=== PATIENT | male | born 1990 | race Two or more races ===

== ENCOUNTER 2019-02-28 05:11 | Inpatient (IN) | payer MEDICAID ==
[~2019-02-28] VITALS: Ht 170.2 cm; Wt 110.0 kg
[~2019-02-28 05:11] MED LIST: IBUP800T24 PO
[2019-02-28 06:13] LABS: Basophils # (auto) 0 uL; Basophils % (auto) 0.5 % (0.0-2.0); Eosinophils # (auto) 0.7 uL; Eosinophils % (auto) 7.7 % (0.0-7.0); Hematocrit 47.4 % (41.0-53.0); Hemoglobin 16.2 g/dL (13.5-17.5); Lymphocytes # (auto) 2.1 uL; Lymphocytes % (auto) 23.1 % (10.0-50.0); Mean Corpuscular Hemoglobin 30.1 pg (28.0-32.0); Mean Corpuscular Hgb Conc. 34.2 g/dL (32.0-36.0); Monocytes # (auto) 0.5 uL; Monocytes % (auto) 5.8 % (0.0-12.0); Neutrophils # (auto) 5.8 uL; Neutrophils % (auto) 62.9 % (37.0-80.0); Platelet Count (auto) 336 10^3/uL (140-450); Red Blood Cells 5.38 10^6/uL (4.5-5.90); Red Cell Distribution Width 13.5 % (11.8-14.3); White Blood Cell 9.3 10^3/uL (4.4-10.8)
[2019-02-28 06:31] LABS: Urine Bacteria FEW /hpf (None Seen); Urine Blood Negative /uL (Negative); Urine Mucus FEW (None Seen); Urine Specific Gravity 1.024 (1.001-1.035); Urine WBC 1 /hpf (0 - 3)
[2019-02-28 06:46] LABS: INR 0.93 (0.9-1.15); Partial Thromboplastin Time 26.9 sec (23.64-32.05)
[2019-02-28 07:04] LABS: Albumin 3.7 g/dL (3.4-5.0); BUN/Creatinine Ratio 14.4; Calcium 8.7 mg/dL (8.5-10.1); Potassium 3.8 mmol/L (3.5-5.1)
[2019-02-28 07:07] LABS: Bilirubin, Total 0.4 mg/dL (0.2-1.0); Total Protein 7.7 g/dL (6.4-8.2)
[2019-02-28] MEDS ORDERED: SODIUM CHLORIDE 0.9% 1,000 ML IV ONE ×2 (07:28)
[2019-02-28] MEDS ORDERED: ONDANSETRON HCL 4 MG/2 ML VIAL IV ONE (07:30)
[2019-02-28] MEDS ORDERED: cefTRIAXone 1GM/50ML D5W 50 ML IV ONE (07:30)
[2019-02-28] MEDS ORDERED: MORPHINE SULFATE 4 MG/ML SYR/VIAL IV ONE (07:30)
[2019-02-28] MEDS ORDERED: metroNIDAZOLE 500MG/100ML 100 ML IV ONE (07:30)
[2019-02-28] MEDS ORDERED: SODIUM CHLORIDE 0.9% 1,000 ML IV SCH (08:33)
[2019-02-28] MEDS ORDERED: FAMOTIDINE (10MG/ML) 2ML VL IV SCH (08:45)
[2019-02-28] MEDS ORDERED: MORPHINE SULF INJ 2 MG/ML SYRINGE 1ML IV PRN (08:45)
[2019-02-28] MEDS ORDERED: PROMETHAZINE HCL 25 MG/ML 1ML IV PRN (08:45)
[2019-02-28] MEDS ORDERED: TEMAZEPAM 15 MG CAP PO PRN (08:45)
[2019-02-28] MEDS ORDERED: DEXTROSE (50%) 50ML SYRG IV PRN (08:45)
[2019-02-28] MEDS ORDERED: ACETAMINOPHEN 500 MG TAB PO PRN (08:45)
[2019-02-28] MEDS ORDERED: NITROGLYCERIN 0.4 MG SL TAB SL PRN (08:45)
[2019-02-28] MEDS ORDERED: traMADol HCL 50 MG TAB PO PRN (08:45)
[2019-02-28] MEDS ORDERED: MORPHINE SULFATE 4 MG/ML SYR/VIAL IV PRN (08:45)
[2019-02-28] MEDS: cefTRIAXone 1GM/50ML D5W 50 ML IV SCH (09:00)
[2019-02-28] MEDS: ENOXAPARIN SOD 40 MG/0.4 ML SYRINGE SC SCH (11:25)
[2019-02-28] MEDS: InsuLIN REG 1unit/0.01ml Soln (100units/ml) SC SCH ×3 (11:26→21:54)
[2019-02-28] MEDS: ACCU-CHEK COMFORT CURVE STRIP VI SCH ×3 (11:26→21:54)
[2019-02-28] MEDS ORDERED: METF-370 PO ×2 (13:03)
[2019-02-28] MEDS: SODIUM CHLORIDE 0.9% 1,000 ML IV SCH (14:10)
[2019-02-28] MEDS: metroNIDAZOLE 500MG/100ML 100 ML IV SCH ×2 (14:40→21:54)
[2019-02-28] MEDS: PANTOPRAZOLE 40 MG TAB PO SCH ×2 (14:40→21:54)
[2019-02-28 17:34] VITALS: BP 135/80
[2019-02-28 22:25] VITALS: BP 119/65
[2019-03-01] MEDS: SODIUM CHLORIDE 0.9% 1,000 ML IV SCH ×2 (01:36→10:10)
[2019-03-01 05:25] VITALS: BP 116/68
[2019-03-01] MEDS: metroNIDAZOLE 500MG/100ML 100 ML IV SCH ×2 (05:58→14:06)
[2019-03-01] MEDS: InsuLIN REG 1unit/0.01ml Soln (100units/ml) SC SCH ×2 (06:36→11:30)
[2019-03-01] MEDS: ACCU-CHEK COMFORT CURVE STRIP VI SCH ×2 (06:36→11:30)
[2019-03-01 07:25] LABS: Amylase 47 U/L (25-115); Lipase 168 U/L (73-393)
--- NOTE | 2019-03-01 08:00 | NUR ---
RECEIVED PATIENT ALERT AND ORIENTED X4, NOT IN DISTRESS, CLEAR SOUNDS IN BILATERAL LUNG LOBES, COUGHING AND DEEP BREATHING ENCOURAGED, DEMONSTRATED WELL, RR=18, SR R=8 ON TELE MONITOR, DENIED SOB OR CHEST PAIN AT THIS MOMENT, ABDOMEN SOFT WITH ACTIVE BS, LAST BM 02/28/19 REPORTED, KEEP NPO ORDERED, SKIN INTACT WARM TO TOUCH, KEEP SKIN CLEAN AND DRY, NO RESTRICTIONS TO AMBULATE, HEAD OF BED ELEVATED, BED ON LOW POSITION, RAILS UP X2, CALL LIGHT ON REACH, PENDING EGD ORDERED, WILL CONTINUE MONITORING.
--- NOTE | 2019-03-01 08:40 | NUR ---
PRE OP CONTACTED FOR EGD SCHEDULE FOLLOW UP, APPROXIMATE STIMATE TIME 10:30 REPORTED, NOT IN DISTRESS, FAMILY AT BEDSIDE.
[2019-03-01] MEDS ORDERED: SODIUM CHLORIDE LOCK 10 ML ONE (08:41)
[2019-03-01] MEDS ORDERED: LIDOCAINE VISCOUS 2% 15ML UD ONE (08:41)
[2019-03-01] MEDS ORDERED: diphenhdrAMINE HCL 50 MG/1 ML VL ONE (08:42)
[2019-03-01 08:44] VITALS: BP 137/81
--- NOTE | 2019-03-01 09:30 | NUR ---
LAB CONTACTED FOR 10:30 PTT DRAW FOLLOW UP. Addendum: 03/01/19 at 1155 by Candace Thompson RN WRONG PATIENT
[2019-03-01] MEDS: cefTRIAXone 1GM/50ML D5W 50 ML IV SCH (10:10)
--- NOTE | 2019-03-01 11:00 | NUR ---
WENT ON BED FOR EGD, TOLERATED WELL, WILL CONTINUE FOLLOW UP.
--- NOTE | 2019-03-01 11:15 | NUR ---
10:30 PTT L=80.9, HEPARIN DRIP ADJUSTED BY DECREASING 200U ORDERED, SITTING ON BED, NOT IN DISTRESS, DENIED CHEST PAIN. Addendum: 03/01/19 at 1200 by Candace Thompson RN WRONG PATIENT.
[2019-03-01] MEDS: MIDAZOLAM HCL 5 MG/ML-1ML VIAL ONE ×2 (11:55→11:58)
[2019-03-01] MEDS: fentaNYL CITRATE 100 MCG/2 ML VL ONE ×2 (11:55→11:58)
[2019-03-01] MEDS: PANTOPRAZOLE 40 MG TAB PO SCH (14:05)
[2019-03-01] MEDS: ENOXAPARIN SOD 40 MG/0.4 ML SYRINGE SC SCH (14:05)
--- NOTE | 2019-03-01 16:00 | NUR ---
CAME BACK FROM EGD, TOLERATED WELL, VS T=98.4 RR=16 SAT=96% P=66 HM=324/76, BS=72, TOLERATED PROVIDED LUNCH TRAY, NOT IN DISTRESS, DENIED PAIN, RESTING ON BED, PENDING D/C HOME TODAY.
[2019-03-01 16:32] VITALS: BP 115/51
[2019-03-01 17:00] VITALS: BP 112/75
--- NOTE | 2019-03-01 17:50 | NUR ---
D/C INSTRUCTIONS AND FOLLOW UP EDUCATIONS PROVIDED, VERBALIZED UNDERSTANDING, D/C IV SITE AND TELE, TOLERATED WELL, VS T=98.2 R=18 SAT=96% P=83 OR=840/67, NOT IN DISTRESS, DENIED PAIN, WC PROVIDED, D/C HOME WALKING ACCOMPANIED BY FAMILY,TOOK ALL BELONGINGS AND FORGET MEDICATION IN THE ROOM PRESCRIPTION, CALLED ON [phone] AND LEFT A MASSAGE.
== END 2019-03-01 17:40 | disposition home or self-care (01) | DRG 241 ==
LOC: ER 05:11 → TELE 05:12 → TELE-WESTW 10:04
PROVIDERS: ADMIT Internal Medicine; ATTEND Internal Medicine
PROC: 0DB68ZX Excision of Stomach, Via Natural or Artificial Opening Endoscopic, Diagnostic (ICD-10-PCS; 2019-03-01)
PROC: 0DB48ZX Excision of Esophagogastric Junction, Via Natural or Artificial Opening Endoscopic, Diagnostic (ICD-10-PCS; principal; 2019-03-01 11:53)
DX: K29.70 Gastritis, unspecified, without bleeding (principal); K85.90 Acute pancreatitis without necrosis or infection, unspecified; E66.01 Morbid (severe) obesity due to excess calories; A08.4 Viral intestinal infection, unspecified; E11.9 Type 2 diabetes mellitus without complications; K21.0 Gastro-esophageal reflux disease with esophagitis; K29.80 Duodenitis without bleeding; K44.9 Diaphragmatic hernia without obstruction or gangrene; F17.210 Nicotine dependence, cigarettes, uncomplicated; Z88.1 Allergy status to other antibiotic agents; Z83.3 Family history of diabetes mellitus; Z82.5 Family history of asthma and other chronic lower respiratory diseases; Z80.0 Family history of malignant neoplasm of digestive organs; Z80.3 Family history of malignant neoplasm of breast; Z82.49 Family history of ischemic heart disease and other diseases of the circulatory system; Z68.38 Body mass index [BMI] 38.0-38.9, adult; Z79.899 Other long term (current) drug therapy
CPT/HCPCS: 36415; 43239; 71045; 74176; 80053; 81001; 82150; 82962; 83036; 83605; 83690; 85025; 85610; 85730; 87040; 87045; 87427; 96361; 96365; 96375; G0378; J0696; J2250; J2405; J3490

== ENCOUNTER 2019-03-03 11:33 | Emergency (ER) | payer MEDICAID ==
[~2019-03-03] VITALS: Ht 170.2 cm; Wt 108.9 kg
[~2019-03-03 11:33] MED LIST changes: -IBUP800T24 PO; +METF-370 PO
[2019-03-03 11:40] VITALS: BP 138/85
[2019-03-03 12:14] LABS: Urine Bacteria NONE SEEN /hpf (None Seen); Urine Blood Negative /uL (Negative); Urine Mucus FEW (None Seen); Urine WBC <1 /hpf (0 - 3)
[2019-03-03 13:27] LABS: Basophils # (auto) 0 uL; Basophils % (auto) 0.3 % (0.0-2.0); Eosinophils # (auto) 0.4 uL; Eosinophils % (auto) 4.8 % (0.0-7.0); Hemoglobin 16.9 g/dL (13.5-17.5); Lymphocytes # (auto) 0.7 uL; Lymphocytes % (auto) 8.2 % (10.0-50.0); Mean Corpuscular Hemoglobin 30.5 pg (28.0-32.0); Mean Corpuscular Hgb Conc. 33.7 g/dL (32.0-36.0); Mean Corpuscular Volume 90.4 fL (80.0-100.0); Monocytes # (auto) 0.7 uL; Monocytes % (auto) 8.3 % (0.0-12.0); Neutrophils # (auto) 6.6 uL; Neutrophils % (auto) 78.4 % (37.0-80.0); Nucleated Red Blood Cells % 0.1 %; Platelet Count (auto) 312 10^3/uL (140-450); Red Blood Cells 5.52 10^6/uL (4.5-5.90); Red Cell Distribution Width 13.4 % (11.8-14.3); White Blood Cell 8.5 10^3/uL (4.4-10.8)
[2019-03-03 13:44] LABS: Albumin 4.2 g/dL (3.4-5.0); Calcium 9.3 mg/dL (8.5-10.1)
[2019-03-03 13:49] LABS: BUN/Creatinine Ratio 14.4; Bilirubin, Total 0.5 mg/dL (0.2-1.0); Total Protein 8.7 g/dL (6.4-8.2)
== END 2019-03-03 17:31 | disposition left against medical advice (07) ==
LOC: ER 11:33
DX: R10.13 Epigastric pain (principal); R51 Headache; R11.0 Nausea; Z53.21 Procedure and treatment not carried out due to patient leaving prior to being seen by health care provider
CPT/HCPCS: 36415; 80053; 81001; 82962; 83690; 85025

== ENCOUNTER 2019-04-11 15:13 | Emergency (ER) | payer MEDICAID ==
[~2019-04-11] VITALS: Ht 172.7 cm; Wt 108.9 kg
[2019-04-11] MEDS ORDERED: PANTOPRAZOLE 40 MG TAB PO ONE (16:00)
[2019-04-11 16:33] LABS: Amylase 59 U/L (25-115); Lipase 100 U/L (73-393)
[2019-04-11 16:34] LABS: Basophils # (auto) 0.1 uL; Basophils % (auto) 0.4 % (0.0-2.0); Eosinophils # (auto) 0.1 uL; Eosinophils % (auto) 0.6 % (0.0-7.0); Hematocrit 50.1 % (41.0-53.0); Hemoglobin 16.8 g/dL (13.5-17.5); Lymphocytes # (auto) 0.5 uL; Lymphocytes % (auto) 2.7 % (10.0-50.0); Mean Corpuscular Hemoglobin 30.1 pg (28.0-32.0); Mean Corpuscular Hgb Conc. 33.6 g/dL (32.0-36.0); Mean Corpuscular Volume 89.6 fL (80.0-100.0); Monocytes # (auto) 0.4 uL; Monocytes % (auto) 2.4 % (0.0-12.0); Neutrophils % (auto) 93.9 % (37.0-80.0); Platelet Count (auto) 318 10^3/uL (140-450); Red Blood Cells 5.59 10^6/uL (4.5-5.90); Red Cell Distribution Width 13.3 % (11.8-14.3); White Blood Cell 18.1 10^3/uL (4.4-10.8)
[2019-04-11] MEDS ORDERED: ONDANSETRON ODT 4 MG TAB PO ONE (16:45)
[2019-04-11 17:12] LABS: Potassium 4.3 mmol/L (3.5-5.1)
[2019-04-11 17:13] LABS: BUN/Creatinine Ratio 12.2; Bilirubin, Total 0.8 mg/dL (0.2-1.0); Total Protein 8.4 g/dL (6.4-8.2)
[2019-04-11] MEDS ORDERED: CEPHALEXIN 250 MG CAP PO ONE (17:15)
[2019-04-11] MEDS ORDERED: metroNIDAZOLE 500 MG TAB PO ONE (17:15)
[2019-04-11 17:23] LABS: Albumin 3.9 g/dL (3.4-5.0); Calcium 9.1 mg/dL (8.5-10.1)
[2019-04-11 17:40] VITALS: BP 129/74
== END 2019-04-11 17:51 | disposition home or self-care (01) ==
LOC: ER 15:13
DX: K29.70 Gastritis, unspecified, without bleeding (principal); K52.9 Noninfective gastroenteritis and colitis, unspecified; E11.9 Type 2 diabetes mellitus without complications; K21.9 Gastro-esophageal reflux disease without esophagitis; F17.210 Nicotine dependence, cigarettes, uncomplicated; Z88.1 Allergy status to other antibiotic agents
CPT/HCPCS: 36415; 74176; 80053; 82150; 83690; 85025; 99284; Q0162

== ENCOUNTER 2025-04-09 06:21 | Emergency (ER) | payer BC, MEDICAID ==
[~2025-04-09] VITALS: Ht 172.7 cm; Wt 118.2 kg
--- NOTE | 2025-04-09 06:55 | ED.PDOC ---
Musculoskeletal HPI Comments A 35 YEARS OLD MALE PRESENTS TO THE ED WITH COMPLAINT OF LEFT SHOULDER PAIN. PT STATES HE WAS PICKING UP TREE BEACHES AT WORK AND STATES HE LOST HIS BALANCE AND FELL TO THE FLOOR LANDING ON HIS L SHOULDER TO HELP BREAK HIS FALL. PT DENIES ANY ASSOCIATED LOSS OF CONSCIOUSNESS BUT HAS SINCE NOT BEEN ABLE TO LIFT OR RAISE HIS L SHOULDER. PT STATES HE WAS AT URGENT CARE YESTERDAY AND STATES HE HAD X-RAYS DONE WITH NORMAL AND NOT GIVEN PAIN MEDICATIONS AND SENT HOME. PATIENT DENIES FEVER, CHILLS, SHORTNESS OF BREATH, CHEST PAIN, ABDOMINAL PAIN, NAUSEA, VOMITING, HEADACHE, OR OTHER COMPLAINTS. NO OTHER SYMPTOMS OR MODIFYING FACTORS AT THIS TIME. PATIENT IS ALERT, ORIENTED X 4, AND HAS STEADY GAIT. Chief Complaint: Upper Extremity Time Seen by MD: 06:48 Primary Care Provider: COLTON CALLE Reviewed Notes: Nurses Notes, Medications, Allergies Allergies: Coded Allergies: Erythromycin (Verified Allergy, Unknown, 02/28/19) Home Meds Reported Medications Metformin Hydrochloride (Metformin Hcl) 500 Mg Tab, 1 TAB PO BID, #60 TAB 3 Refills 02/28/19 Information Source: Patient Mode of Arrival: Ambulatory Brought in by: SELF Location: Left Extremity Location: Shoulder Timing: Days Prehospital treatment: Treatment Severity: Moderate Able to Move Extremity: Yes Bear Weight: Limited Pain: Moderate Hand Dominance: Right Mechanism: Other Circumstances: Fall Symptoms: Swelling, Pain DVT Risk Factors: NONE Last Tetanus: UTD Associated signs and symptoms: Shoulder pain Past Medical History PAST MEDICAL HISTORY: DM, Gallstones, GERD Surgical History: Denies all surgeries Family History Family History: Reviewed,noncontributory to illness Social History Smoker: Cigarettes, Less Than 1 Pack/Day Alcohol: Occasionally Drugs: Denies Drug Use Lives In: Home Constitutional: denies: chills, diaphoresis, fatigue, fever, malaise, sweats, weakness, others EENTM: denies: blurred vision, double vision, ear bleeding, ear discharge, ear drainage, ear pain, ear ringing, eye pain, eye redness, hearing loss, mouth pain, mouth swelling, nasal discharge, nose bleeding, nose congestion, nose pain, photophobia, tearing, throat pain, throat swelling, voice changes, others Respiratory: denies: cough, hemoptysis, orthopnea, SOB at rest, shortness of breath, SOB with excertion, stridor, wheezing, others Cardiovascular: denies: chest pain, dizzy spells, diaphoresis, Dyspnea on exertion, edema, irregular heart beat, left arm pain, lightheadedness, palpitations, PND, syncope, others Gastrointestinal: denies: abdomen distended, abdominal pain, blood streaked bowels, constipated, diarrhea, dysphagia, difficulty swallowing, hematemesis, melena, nausea, poor appetite, poor fluid intake, rectal bleeding, rectal pain, vomiting, others Genitourinary: denies: burning, dysuria, flank pain, frequency, hematuria, incontinence, penile discharge, penile sore, pain, testicle pain, testicle swelling, urgency, others Neurological: denies: dizziness, fainting, headache, left sided numbness, left sided weakness, numbness, paresthesia, pre-existing deficit, right sided numbness, right sided weakness, seizure, speech problems, tingling, tremors, weakness, others Musculoskeletal: reports: joint pain (L SHOULDER), muscle pain; denies: back pain, gout, joint swelling, muscle stiffness, neck pain, others Integumetry: denies: bruises, change in color, change in hair/nails, dryness, laceration, lesions, lumps, rash, wounds, others Allergic/Immunocompromised: denies: Difficulty Healing, Frequent Infections, Hives, Itching, others Hematologic/Lymphatic: denies: anemia, blood clots, easy bleeding, easy bruising, swollen glands, others Endocrine: denies: excessive hunger, excessive sweating, excessive thirst, excessive urination, flushing, intolerance to cold, intolerance to heat, unexplained weight gain, unexplained weight loss, others Psychiatric: denies: anxiety, bipolar disorder, depression, hopeless, panic disorder, schizophrenia, sleepless, suicidal, others All Other Systems: Reviewed and Negative Physical Exam General Appearance: Mild Distress HEENT: Normal ENT Inspection, PERRL/EOMI, Pharynx Normal, TMs Normal Neck: Full Range of Motion, Non-Tender, Normal, Normal Inspection Respiratory: Chest Non-Tender, Lungs Clear, No Accessory Muscle Use, No Respiratory Distress, Normal Breath Sounds Cardiovascular: No Edema, No JVD, No Murmur, No Gallop, Normal Peripheral Pulses, Regular Rate/Rhythm Breast Exam: Deferred Gastrointestinal: No Organomegaly, Non Tender, No Pulsatile Mass, Normal Bowel Sounds, Soft Genitalia: Deferred Pelvic: Deferred Rectal: Deferred Extremities: Decreased range of motion, No calf tenderness, Normal capillary r efill, No pedal edema, Tender (AND MUSCLE TIGHTNESS ON LEFT SHOULDER, NO BONY TENDERNESS, SWELLING AND DEFORMITY. ROM DECREASED. ) Musculoskeletal : Apperance: Normal Neurologic: Alert, it operations manager II-XII nml as Tested, No Motor Deficits, Normal Affect, Normal Mood, No Sensory Deficits Cerebellar Function: Normal Reflexes: Normal Skin: Dry, Normal Color, Warm Peripheral Pulses: 2+ carotid (R), 2+ carotid (L) Lymphatic: No Adenopathy Was a procedure done? Was a procedure done?: No Differential Diagnosis EXT Differential Diagnosis: Fracture, Sprain, DJD, Arthritis, Bursitis, Other (ROTATOR CUFF INJURY OF LEFT SHOULDER ) Other Differential Diagnosis ROTATOR CUFF INJURY X-Ray, Labs, Meds, VS Vital Signs Date Time Temp Pulse Resp B/P (MAP) Pulse Ox O2 Delivery O2 Flow Rate FiO2 04/09/25 06:24 97.6 74 18 124/82 97 97.6 X-Ray, Labs, Meds, VS Comment COURSE: EXTERNAL MEDICAL RECORDS REVIEWED: [NONE] INDEPENDENT HISTORIANS: [NONE] SOCIAL DETERMINANTS OF HEALTH: [NONE] LABS ORDERED: NONE REVIEWED AND INTERPRETED RESULTS: NONE IMAGING ORDERED: NONE TREATMENTS ORDERED: TORADOL 60 MG IM PROCEDURES PERFORMED: NONE CRITICAL CARE TIME: NONE I HAVE DISCUSSED THE PATIENT WITH THE ATTENDING PHYSICIAN DR. URRUTIA AND HE AGREES WITH THE PATIENT'S PLAN OF CARE AND DISPOSITION. BASED ON HISTORY OF PRESENT ILLNESS, AND PHYSICAL EXAM, PATIENT WILL BE DISCHARGED HOME. DISCUSSED PLAN FOR DISCHARGE HOME WITH RX [MOTRIN AND ROBAXIN ]. MEDICATION WARNINGS GIVEN. SHARED DECISION MAKING: DISCUSSED WITH PATIENT THAT THEIR WORKUP WAS NORMAL. PATIENT INSTRUCTED TO FOLLOW UP WITH PRIMARY CARE PROVIDER IN 1-2 DAYS FOR RE- EVALUATION OF SYMPTOMS. PATIENT VERBALIZES UNDERSTANDING TO RETURN TO ED FOR NEW OR WORSENING SYMPTOMS OR IF FOLLOW UP WITH PCP CANNOT BE OBTAINED. PATIENT FEELS COMFORTABLE GOING HOME AT THIS TIME. ALL QUESTIONS ADDRESSED AT TIME OF DISCHARGE. Time of 1ST Reevaluation: 07:30 Reevaluation 1ST: Improved Patient Education/Counseling: Diagnosis, Treatment, Need For Follow Up Family Education/Counseling: Diagnosis, Treatment, No Family Present Medical Screening: No EMC Exist At This Time Departure 1 Departure Time of Disposition: 07:30 Impression: Primary Impression: Injury of muscle or tendon of rotator cuff Qualified Codes: S46.002A - Unspecified injury of muscle(s) and tendon(s) of the rotator cuff of left shoulder, initial encounter Disposition: HOME / SELF CARE / HOMELESS Condition: Stable Additional Instructions: INSTRUCTIONS: FOLLOW-UP WITH PCP IN 1 TO 2 DAYS. TAKE MEDICATIONS PRESCRIBED. RETURN TO ED FOR ANY NEW OR WORSENING SYMPTOMS. e-Prescriptions Methocarbamol (Methocarbamol) 750 Mg Tab 750 MG PO BID, #20 TAB Prov: SUNNY TOURE 04/09/25 Ibuprofen (Ibuprofen) 800 Mg Tab 1 TAB PO TID, #30 TAB Prov: SUNNY TOURE 04/09/25 Discharged With: Self Critical Care Note Critical Care Time?: No Stability Stability form required: No Heart Score Heart Score: Heart Score Response (Comments) Value History N/A 0 EKG N/A 0 Age N/A 0 Risk Factors N/A 0 Troponin N/A 0 Total 0 I personally scribed for SUNNY TOURE ([id number]) on 04/09/25 at 06:55. Electronically submitted by Edwina Magallanes ([email or web address]). SUNNY TOURE Apr 09, 2025 06:55
[2025-04-09] MEDS ORDERED: IBUP-1456 PO (07:08)
[2025-04-09] MEDS ORDERED: METH-1182 PO (07:08)
[2025-04-09] MEDS: KETOROLAC TROMETH 60MG/2ML VIAL IM ONE (07:13)
[2025-04-09 07:27] VITALS: BP 124/82; PULSE 74; RESP 18; TEMP 97.6; O2SAT 97
== END 2025-04-09 07:33 | disposition home or self-care (01) ==
LOC: ER 06:21
DX: S49.92XA Unspecified injury of left shoulder and upper arm, initial encounter (principal); E11.9 Type 2 diabetes mellitus without complications; F17.210 Nicotine dependence, cigarettes, uncomplicated; Z79.84 Long term (current) use of oral hypoglycemic drugs; Z88.1 Allergy status to other antibiotic agents; W01.198A Fall on same level from slipping, tripping and stumbling with subsequent striking against other object, initial encounter; Y93.89 Activity, other specified; Y92.89 Other specified places as the place of occurrence of the external cause; Y99.8 Other external cause status
CPT/HCPCS: 96372; 99283; J1885